=== PATIENT | female | born 1995 | race Caucasian/White ===

== ENCOUNTER 2020-07-01 10:42 | Outpatient (CLI) | payer MEDICAID, SELFPAY ==
--- NOTE | 2020-07-01 11:02 | XR_ITS ---
WS: [id number] Mandible series, 4 views, 07/01/2020 Clinical Data: M26.629 - Arthralgia of temporomandibular joint, unspecified side Comparison: None. Findings: There are no mandibular fractures. The angle of the mandible and the body and mental symphysis appear to be normal. The mandibular condyles are not remarkable. The patient has good dentition. XR/XR mandible min 4V [id number] Impression: Negative mandible series.
== END 2020-07-01 10:43 | disposition home or self-care (01) ==
PROVIDERS: PCP Nurse Practitioner Family; Visit Provider Nurse Practitioner Family
DX: M26.629 Arthralgia of temporomandibular joint, unspecified side (principal)
CPT/HCPCS: 70110

== ENCOUNTER → 2023-06-02 15:27 | Outpatient (BNVA) | payer BC, SELFPAY | PROVIDERS: PCP Nurse Practitioner Family; Visit Provider Emergency Medicine | DX: R63.5 Abnormal weight gain (principal); R53.83 Other fatigue; F32.A Depression, unspecified; R53.82 Chronic fatigue, unspecified; F34.1 Dysthymic disorder | CPT/HCPCS: 80053; 84443; 85025 ==